=== PATIENT | male | born 1965 | race Caucasian/White ===

== ENCOUNTER 2023-10-14 08:51 | Emergency (ER) | payer OTHER ==
[~2023-10-14] VITALS: Ht 177.8 cm; Wt 63.6 kg
[2023-10-14] VITALS (13 sets, daily range): BP systolic 126–154; BP diastolic 72–94
[2023-10-14] MEDS ORDERED: ONDANSETRON HCl 4 MG/2 ML SDV IV ONE (09:00)
[2023-10-14] MEDS ORDERED: SODIUM CHLORIDE 0.9% 1,000 ML IV ONE (09:00)
[2023-10-14] MEDS ORDERED: KETOROLAC TROMETHAMINE 30 MG/ML SDV IV ONE (09:05)
[2023-10-14 09:28] LABS: ALBUMIN 4.8 g/dL (3.2-5.0); BILIRUBIN, TOTAL 1.8 mg/dL (0.2-1.3); TOTAL PROTEIN 8.4 g/dL (6.3-8.2)
[2023-10-14 09:35] LABS: BASO% 0.2 % (0-3); EOS% 0.4 % (0-8); HEMATOCRIT 47.3 % (39.0-50.0); HEMOGLOBIN 15.6 g/dl (14.0-18.0); IMMATURE GRANULOCYTES 0.3 % (0.0-5.0); LYMPH% 19.1 % (15-41); MEAN CELL VOLUME 93.7 fL CALC (80.0-100.0); MEAN CORPUSCULAR HGB 30.9 pG CALC (26.0-32.0); MONO% 9.1 % (2-13); NEUT# 7.14 thou/uL (1.82-7.42); NEUT% 70.9 % (42-76); RED BLOOD COUNT 5.05 mill/uL (4.70-6.10); RED CELL DISTRI WIDTH 13.1 % (11.5-15.5)
[2023-10-14 10:08] LABS: URINE BLOOD DIPSTICK Small (NEGATIVE); URINE GLUCOSE - DIPSTICK Negative (NEGATIVE); URINE KETONE 40 mg/dL (NEGATIVE); URINE LEUK ESTERASE Negative (NEGATIVE); URINE NITRITE - DIPSTICK Negative (Negative); URINE PH 5.5 (4.5-8.0); URINE PROTEIN - DIPSTICK 30 mg/dL (NEG-TRACE); URINE SPECIFIC GRAVITY >=1.030; URINE UROBILINOGEN - DIPSTICK 0.2 E.U./dL (0.2)
[2023-10-14 10:09] LABS: URINE COLOR Yellow; URINE EPITHELIAL CELLS FEW EPI/hpf (0-FEW); URINE MUCUS FEW hpf (NONE-FEW); URINE RBC 0-2 RBC/hpf (0-5)
[2023-10-14] MEDS ORDERED: OMNICEF300 MG PO (12:35)
[2023-10-14] MEDS ORDERED: LEVSIN0.125 M1 PO (12:35)
[2023-10-14] MEDS ORDERED: PROTONIX40 M2 PO (12:35)
[2023-10-14] MEDS ORDERED: ZOFRAN4 MG/TAB PO (12:35)
== END 2023-10-14 12:47 | disposition home or self-care (01) | DRG 392 ==
LOC: ED 08:51
PROVIDERS: Family Medicine
DX: R10.13 Epigastric pain (principal); R10.11 Right upper quadrant pain; R31.9 Hematuria, unspecified
CPT/HCPCS: Q9967